=== PATIENT | female | born 1970 | race African-American/Black ===

== ENCOUNTER 2016-10-15 14:41 | Emergency (ER) | payer BC ==
[~2016-10-15] VITALS: Ht 177.8 cm; Wt 111.8 kg
[~2016-10-15 14:41] MED LIST: ANTIVERT 25MG25 MG PO; FLEXERIL 1010 MG/TAB PO; NO HOME MEDICATIONS; NORCO 325 MG-51 TAB PO; PEPCID 20MG TAB20 MG PO; SYNTHROID0.125 MG/T PO
[2016-10-15 14:45] VITALS: TEMP 98.2
[2016-10-15] MEDS ORDERED: COPAXONE 20M20 MG/M1 SQ (14:49)
[2016-10-15 16:01] LABS: BASO % 0.4 % (0.0-2.0); EOS # 0.2 (0.0-0.7); EOS % 2.8 % (0-4.0); GRAN # 4.6 (1.4-6.5); GRAN % 61.4 % (42.2-75.2); HEMATOCRIT 46.5 % (37.0-47.0); HEMOGLOBIN 15.3 g/dl (12.5-16.0); LYMPH # 2.1 (1.2-3.4); MEAN CELL VOLUME 95 fl (80.0-100.0); MEAN CORPUSCULAR HEMOGLOBIN 31 pg (27.0-31.0); MEAN CORPUSCULAR HGB CONC 33 g/dl (33.0-37.0); MEAN PLATELET VOLUME 11.6 fl (7.4-10.4); MONO # 0.6 (0.1-0.6); MONO % 7.3 % (1.7-9.3); PLATELET COUNT 170 K/mm3 (130-400); RED BLOOD COUNT 4.88 M/mm3 (4.10-5.30); REDCELL DISTRIBUTION WIDTH-CV 13.7 % (11.5-14.5); WHITE BLOOD COUNT 7.5 K/mm3 (4.8-10.8)
[2016-10-15 16:11] LABS: CALCIUM 8.8 mg/dL (8.4-10.2); CREATININE, serum 1.24 mg/dL (0.52-1.25); POTASSIUM 3.5 mmol/L (3.4-5.0)
[2016-10-15 17:00] VITALS: BP 120/88; PULSE 90
== END 2016-10-15 17:02 | disposition home or self-care (01) ==
LOC: COL.ER 14:41 → EDSTATUS 14:44 → COL.ER 17:02
PROVIDERS: Emergency Medicine
DX: J10.1 Influenza due to other identified influenza virus with other respiratory manifestations (principal)
CPT/HCPCS: J1200; J1885; J2765; J3010; J7030

== ENCOUNTER → 2016-12-23 | Outpatient (CLI) | payer BC ==
[~2016-12-23] MED LIST changes: +COPAXONE 20M20 MG/M1 SQ
== END ==
LOC: MHCPAIN 11:26
DX: G89.29 Other chronic pain (principal); M54.12 Radiculopathy, cervical region; M47.812 Spondylosis without myelopathy or radiculopathy, cervical region
CPT/HCPCS: G0463

== ENCOUNTER → 2016-12-25 | Outpatient (CLI) | payer BC | LOC: MHCPAIN 11:05 | DX: M50.90 Cervical disc disorder, unspecified, unspecified cervical region (principal) | CPT/HCPCS: J1100; Q9967 ==

== ENCOUNTER 2017-07-17 15:00 | Outpatient (RCR) | payer OTHER ==
[2017-07-10 16:15] VITALS: BP 140/88; PULSE 67; TEMP 97.6
[2017-07-13 16:37] VITALS: BP 152/98; PULSE 79; TEMP 97.9
[2017-07-13 17:04] LABS: BASO % 0.1 % (0.0-2.0); GRAN # 18.9 (1.4-6.5); GRAN % 79.5 % (42.2-75.2); HEMATOCRIT 38.9 % (37.0-47.0); HEMOGLOBIN 12.7 g/dl (12.5-16.0); LYMPH # 3.1 (1.2-3.4); LYMPH % 13.2 % (20.0-51.0); MEAN CELL VOLUME 99 fl (80.0-100.0); MEAN CORPUSCULAR HEMOGLOBIN 32 pg (27.0-31.0); MEAN CORPUSCULAR HGB CONC 33 g/dl (33.0-37.0); MEAN PLATELET VOLUME 11.8 fl (7.4-10.4); MONO # 1.5 (0.1-0.6); MONO % 6.1 % (1.7-9.3); PLATELET COUNT 221 K/mm3 (130-400); RED BLOOD COUNT 3.95 M/mm3 (4.10-5.30)
[2017-07-13 17:06] LABS: WHITE BLOOD COUNT 23.8 K/mm3 (4.8-10.8)
[2017-07-13 17:15] LABS: ADJUSTED CALCIUM 8.8 mg/dL (8.4-10.2); ALBUMIN 3.9 gm/dL (3.5-5.0); BILIRUBIN,TOTAL 0.2 mg/dL (0.0-1.0); CALCIUM 8.7 mg/dL (8.4-10.2); CREATININE, serum 1.02 mg/dL (0.52-1.25); POTASSIUM 3.3 mmol/L (3.4-5.0); TOTAL PROTEIN 6.7 gm/dL (6.4-8.2)
[2017-07-14 16:48] VITALS: BP 155/89; PULSE 62; TEMP 98.1
[~2017-07-17] VITALS: Ht 180.3 cm; Wt 118.8 kg
[2017-07-17 14:30] VITALS: BP 173/81; PULSE 89; TEMP 97.6
[2017-07-17 15:05] LABS: HEMATOCRIT 41.3 % (37.0-47.0); HEMOGLOBIN 13.7 g/dl (12.5-16.0); MEAN CELL VOLUME 97 fl (80.0-100.0); MEAN CORPUSCULAR HEMOGLOBIN 32 pg (27.0-31.0); MEAN CORPUSCULAR HGB CONC 33 g/dl (33.0-37.0); PLATELET COUNT 195 K/mm3 (130-400); RED BLOOD COUNT 4.27 M/mm3 (4.10-5.30); WHITE BLOOD COUNT 16.5 K/mm3 (4.8-10.8)
== END 2017-07-17 15:10 | disposition home or self-care (01) ==
LOC: EUO 15:00
PROVIDERS: Psychiatry & Neurology Neurology
DX: G35 Multiple sclerosis (principal)
CPT/HCPCS: J2930; J7050

== ENCOUNTER → 2017-07-31 | Outpatient (CLI) | payer OTHER ==
[2017-07-31 09:36] LABS: BASO # 0.1 (0.0-0.2); BASO % 0.7 % (0.0-2.0); EOS # 0.3 (0.0-0.7); GRAN # 5.9 (1.4-6.5); GRAN % 61.7 % (42.2-75.2); LYMPH # 2.8 (1.2-3.4); MEAN CELL VOLUME 97 fl (80.0-100.0); MEAN CORPUSCULAR HEMOGLOBIN 32 pg (27.0-31.0); MEAN CORPUSCULAR HGB CONC 33 g/dl (33.0-37.0); MEAN PLATELET VOLUME 11.7 fl (7.4-10.4); MONO # 0.5 (0.1-0.6); MONO % 5.4 % (1.7-9.3); PLATELET COUNT 183 K/mm3 (130-400); RED BLOOD COUNT 4.33 M/mm3 (4.10-5.30); REDCELL DISTRIBUTION WIDTH-CV 14.4 % (11.5-14.5)
== END ==
LOC: COL.LAB 09:11
PROVIDERS: Psychiatry & Neurology Neurology
DX: G35 Multiple sclerosis (principal); D72.829 Elevated white blood cell count, unspecified

== ENCOUNTER → 2017-11-16 | Outpatient (CLI) | payer OTHER | LOC: COL.RAD 11-13 14:00 | DX: R31.9 Hematuria, unspecified (principal) | CPT/HCPCS: Q9967 ==

== ENCOUNTER 2018-05-18 16:30 | Outpatient (RCR) | payer OTHER ==
[2018-05-14 15:00] VITALS: BP 136/72; PULSE 66; TEMP 98
[2018-05-14 15:45] LABS: BASO # 0.1 (0.0-0.2); BASO % 0.7 % (0.0-2.0); EOS # 0.2 (0.0-0.7); GRAN # 6.6 (1.4-6.5); GRAN % 59.7 % (42.2-75.2); HEMATOCRIT 42.2 % (37.0-47.0); HEMOGLOBIN 13.6 g/dl (12.5-16.0); LYMPH # 3.5 (1.2-3.4); LYMPH % 31.4 % (20.0-51.0); MEAN CELL VOLUME 98 fl (80.0-100.0); MEAN CORPUSCULAR HEMOGLOBIN 32 pg (27.0-31.0); MEAN CORPUSCULAR HGB CONC 32 g/dl (33.0-37.0); MEAN PLATELET VOLUME 11.6 fl (7.4-10.4); MONO # 0.7 (0.1-0.6); MONO % 5.9 % (1.7-9.3); PLATELET COUNT 211 K/mm3 (130-400); RED BLOOD COUNT 4.32 M/mm3 (4.10-5.30); REDCELL DISTRIBUTION WIDTH-CV 14.2 % (11.5-14.5)
[2018-05-14 15:53] LABS: ALBUMIN 4.2 gm/dL (3.5-5.0); BILIRUBIN,TOTAL 0.3 mg/dL (0.0-1.0); CALCIUM 9.1 mg/dL (8.4-10.2); CREATININE, serum 1.08 mg/dL (0.52-1.25); POTASSIUM 3.3 mmol/L (3.4-5.0); TOTAL PROTEIN 7.6 gm/dL (6.4-8.2)
[2018-05-15 07:00] VITALS: BP 148/94; PULSE 97; TEMP 98.3
[2018-05-16 07:34] VITALS: BP 99/76; PULSE 88; TEMP 97.3
[2018-05-17 16:48] VITALS: BP 143/84; PULSE 85
[~2018-05-18] VITALS: Ht 180.3 cm; Wt 119.5 kg
[2018-05-18 17:10] VITALS: BP 166/85; PULSE 72; TEMP 97.4
== END 2018-05-18 18:40 | disposition home or self-care (01) ==
LOC: EUO 16:30
PROVIDERS: Psychiatry & Neurology Neurology
DX: G35 Multiple sclerosis (principal)
CPT/HCPCS: J2930; J7050

== ENCOUNTER → 2018-05-21 | Outpatient (CLI) | payer OTHER ==
[2018-05-21 13:28] LABS: COLLECTION METHOD CLEAN CATCH
[2018-05-21 13:31] LABS: HEMATOCRIT 44.9 % (37.0-47.0); MEAN CELL VOLUME 94 fl (80.0-100.0); MEAN CORPUSCULAR HEMOGLOBIN 31 pg (27.0-31.0); MEAN CORPUSCULAR HGB CONC 33 g/dl (33.0-37.0); MEAN PLATELET VOLUME 11.2 fl (7.4-10.4); PLATELET COUNT 205 K/mm3 (130-400); RED BLOOD COUNT 4.79 M/mm3 (4.10-5.30); REDCELL DISTRIBUTION WIDTH-CV 14.3 % (11.5-14.5)
[2018-05-21 13:34] LABS: PH 7 (5-8); SQUAMOUS EPITHELIAL 0-2 /hpf; URINE APPEARANCE Clear; URINE BACTERIA None Seen /hpf; URINE BILIRUBIN Negative (NEGATIVE); URINE BLOOD 1+ (NEGATIVE); URINE COLOR Straw; URINE GLUCOSE Negative (NEGATIVE); URINE KETONE Negative (NEGATIVE); URINE LEUKOCYTE ESTERASE Negative (NEGATIVE); URINE NITRATE Negative (NEGATIVE); URINE PROTEIN(semi-quant) Negative (NEGATIVE); URINE RBC 0-2 /hpf; URINE UROBILINOGEN Negative (NEGATIVE)
[2018-05-21 13:47] LABS: ALBUMIN 3.4 gm/dL (3.5-5.0); BILIRUBIN,TOTAL 0.3 mg/dL (0.0-1.0); CALCIUM 8.2 mg/dL (8.4-10.2); CREATININE, serum 0.91 mg/dL (0.52-1.25); POTASSIUM 3.3 mmol/L (3.4-5.0); TOTAL PROTEIN 6.2 gm/dL (6.4-8.2)
[2018-05-21 13:52] LABS: BAND 5 % (0-10); EOSINOPHIL 3 % (0-4); LYMPHOCYTE 35 % (20.0-51.0); NEUTROPHILS 52 % (42.0-75.2)
[2018-05-21 13:53] LABS: PLATELET ESTIMATE NORMAL (NORMAL)
[2018-05-21 14:06] LABS: ERYTHROCYTE SEDIMENTATION RATE 1 mm/hr (0-20)
[2018-05-21 14:14] LABS: THYROID STIMULATING HORMONE 32.7 uIU/mL (0.465-4.680)
== END ==
LOC: COL.LAB 12:01
PROVIDERS: Family Medicine
DX: M79.10 Myalgia, unspecified site (principal); R73.03 Prediabetes

== ENCOUNTER → 2018-10-08 | Outpatient (CLI) | payer OTHER | LOC: COL.RAD 10:14 | DX: G37.9 Demyelinating disease of central nervous system, unspecified (principal); G35 Multiple sclerosis | CPT/HCPCS: A9585 ==

== ENCOUNTER 2019-03-26 07:00 | Outpatient (RCR) | payer OTHER ==
[2019-03-22 10:30] VITALS: BP 127/82; PULSE 16; TEMP 97.5
[2019-03-23 11:32] VITALS: BP 145/90; PULSE 93; TEMP 98
[2019-03-24 11:00] VITALS: BP 152/101; PULSE 79; TEMP 97.8
--- NOTE | 2019-03-24 12:15 | NUR ---
INT LEFT IN PLACE PER PT REQUEST.WRAPPED IN [employer].
[2019-03-25 10:26] VITALS: BP 152/95; PULSE 73; TEMP 97.6
[~2019-03-26] VITALS: Ht 180.3 cm; Wt 118.3 kg
[2019-03-26 07:07] VITALS: BP 124/81; PULSE 92; TEMP 97.6
--- NOTE | 2019-03-26 09:05 | NUR ---
Pt re Solumedrol well. Pt discharged per ambulation.
== END 2019-03-26 09:06 | disposition home or self-care (01) ==
LOC: EUO 07:00
DX: G35 Multiple sclerosis (principal)
CPT/HCPCS: J2930; J7050

== ENCOUNTER → 2019-04-28 | Outpatient (CLI) | payer OTHER ==
[2019-04-28 07:54] LABS: BASO # 0.1 (0.0-0.2); BASO % 0.8 % (0.0-2.0); EOS # 0.2 (0.0-0.7); EOS % 1.6 % (0-4.0); GRAN # 6.4 (1.4-6.5); GRAN % 63.8 % (42.2-75.2); HEMATOCRIT 43.2 % (37.0-47.0); HEMOGLOBIN 13.8 g/dl (12.5-16.0); LYMPH # 2.7 (1.2-3.4); LYMPH % 26.8 % (20.0-51.0); MEAN CELL VOLUME 98 fl (80.0-100.0); MEAN CORPUSCULAR HEMOGLOBIN 31 pg (27.0-31.0); MEAN CORPUSCULAR HGB CONC 32 g/dl (33.0-37.0); MEAN PLATELET VOLUME 11.2 fl (7.4-10.4); MONO # 0.7 (0.1-0.6); MONO % 6.6 % (1.7-9.3); PLATELET COUNT 249 K/mm3 (130-400); RED BLOOD COUNT 4.43 M/mm3 (4.10-5.30)
[2019-04-28 08:14] LABS: ALBUMIN 4.1 gm/dL (3.5-5.0); BILIRUBIN,TOTAL 0.3 mg/dL (0.0-1.0); CALCIUM 8.8 mg/dL (8.4-10.2); CREATININE, serum 1.15 (0.52-1.25); POTASSIUM 4.1 mmol/L (3.4-5.0); TOTAL PROTEIN 7.3 gm/dL (6.4-8.2)
[2019-04-30 08:24] LABS: TB GOLD INTERPRETATION Negative (Negative)
== END ==
LOC: COL.LAB 07:28
PROVIDERS: Psychiatry & Neurology Neurology
DX: G35 Multiple sclerosis (principal); Z76.89 Persons encountering health services in other specified circumstances; Z79.899 Other long term (current) drug therapy

== ENCOUNTER → 2019-08-17 | Outpatient (CLI) | payer OTHER ==
--- NOTE | 2019-08-16 08:38 | NUR ---
Patient states that she had Albuterol inhaler 1 hour ago. Rescheduling patient for PFT tomorrow at 0700am before her CT annamarie. Brandan Main, [employer]
== END ==
LOC: COL.PUL 08-16 08:00 → COL.RAD 06:45 → COL.PUL 07:00
DX: J92.9 Pleural plaque without asbestos (principal)

== ENCOUNTER → 2019-08-17 | Outpatient (CLI) | payer OTHER | LOC: COL.PUL 06:45 → COL.RAD 08:00 → COL.PUL 08:00 | DX: R05 Cough (principal) | CPT/HCPCS: Q9967 ==

== ENCOUNTER 2019-10-03 07:00 | Outpatient (RCR) | payer OTHER ==
[2019-09-29 16:43] LABS: BASO # 0.1 (0.0-0.2); BASO % 0.7 % (0.0-2.0); EOS # 0.2 (0.0-0.7); EOS % 1.8 % (0-4.0); GRAN # 7.4 (1.4-6.5); GRAN % 61.5 % (42.2-75.2); HEMATOCRIT 41.3 % (37.0-47.0); HEMOGLOBIN 13.5 g/dl (12.5-16.0); LYMPH # 3.3 (1.2-3.4); LYMPH % 27.6 % (20.0-51.0); MEAN CELL VOLUME 99 fl (80.0-100.0); MEAN CORPUSCULAR HEMOGLOBIN 32 pg (27.0-31.0); MEAN CORPUSCULAR HGB CONC 33 g/dl (33.0-37.0); MEAN PLATELET VOLUME 11.7 fl (7.4-10.4); MONO % 8.2 % (1.7-9.3); PLATELET COUNT 198 K/mm3 (130-400); RED BLOOD COUNT 4.19 M/mm3 (4.10-5.30); REDCELL DISTRIBUTION WIDTH-CV 14.1 % (11.5-14.5)
[2019-09-29 16:52] LABS: BILIRUBIN,TOTAL 0.2 mg/dL (0.0-1.0); CALCIUM 8.8 mg/dL (8.4-10.2); CREATININE, serum 1.12 (0.52-1.25); TOTAL PROTEIN 6.9 gm/dL (6.4-8.2)
--- NOTE | 2019-09-29 18:30 | NUR ---
INT wrapped for tomorrow's infusion per pt request.
[2019-09-30 12:24] VITALS: BP 150/95; PULSE 109; TEMP 98.7
[2019-10-01 08:04] VITALS: BP 148/89; PULSE 86; TEMP 98
[2019-10-02 07:36] VITALS: BP 148/91; PULSE 73; TEMP 98.5
[2019-10-02 09:30] VITALS: PULSE 66
--- NOTE | 2019-10-02 09:30 | NUR ---
Per pt request, pt's saline lock to rt hand left in place for tomorrow's infusion. no pain, redness at site noted. site wrapped with coban .
[~2019-10-03] VITALS: Ht 180.3 cm; Wt 87.0 kg
[~2019-10-03 07:00] MED LIST changes: +AUBAGIO14 MG PO
[2019-10-03 09:11] VITALS: BP 158/92; PULSE 66; TEMP 97.6
== END 2019-10-03 09:24 | disposition home or self-care (01) ==
LOC: EUO 07:00
PROVIDERS: Psychiatry & Neurology Neurology
DX: G35 Multiple sclerosis (principal)
CPT/HCPCS: J2405; J2930; J7050

== ENCOUNTER → 2019-10-18 | Outpatient (CLI) | payer OTHER | LOC: COL.RAD 13:44 | DX: M48.02 Spinal stenosis, cervical region (principal); M50.21 Other cervical disc displacement, high cervical region; M47.812 Spondylosis without myelopathy or radiculopathy, cervical region; G35 Multiple sclerosis; G37.1 Central demyelination of corpus callosum | CPT/HCPCS: A9585 ==

== ENCOUNTER 2021-01-05 06:46 | Observation (INO) | payer OTHER ==
[~2021-01-05] VITALS: Ht 177.8 cm; Wt 115.0 kg
[2021-01-05 07:20] LABS: BASO # 0.1 (0.0-0.2); BASO % 0.4 % (0.0-2.0); EOS # 0.1 (0.0-0.7); EOS % 0.3 % (0-4.0); GRAN # 11.5 (1.4-6.5); GRAN % 77.4 % (42.2-75.2); HEMATOCRIT 44.4 % (37.0-47.0); HEMOGLOBIN 14.2 g/dl (12.5-16.0); LYMPH # 2.4 (1.2-3.4); LYMPH % 15.8 % (20.0-51.0); MEAN CELL VOLUME 96 fl (80.0-100.0); MEAN CORPUSCULAR HEMOGLOBIN 31 pg (27.0-31.0); MEAN CORPUSCULAR HGB CONC 32 g/dl (33.0-37.0); MEAN PLATELET VOLUME 11.7 fl (7.4-10.4); MONO # 0.9 (0.1-0.6); MONO % 5.8 % (1.7-9.3); PLATELET COUNT 226 K/mm3 (130-400); RED BLOOD COUNT 4.62 M/mm3 (4.10-5.30); REDCELL DISTRIBUTION WIDTH-CV 13.7 % (11.5-14.5)
[2021-01-05 07:25] LABS: COLLECTION METHOD CLEAN CATCH
[2021-01-05 07:42] LABS: ALBUMIN 4.5 gm/dL (3.5-5.0); BILIRUBIN,TOTAL 0.2 mg/dL (0.0-1.0); CALCIUM 9.7 mg/dL (8.4-10.2); CREATININE, serum 1.34 (0.52-1.25); POTASSIUM 3.5 mmol/L (3.4-5.0); TOTAL PROTEIN 7.9 gm/dL (6.4-8.2)
[2021-01-05 07:43] LABS: MUCOUS Present /lpf; PH 5 (5-8); URINE APPEARANCE Cloudy; URINE BACTERIA Rare /hpf; URINE BILIRUBIN Negative (NEGATIVE); URINE BLOOD 3+ (NEGATIVE); URINE COLOR Yellow; URINE GLUCOSE Negative (NEGATIVE); URINE KETONE Trace (NEGATIVE); URINE LEUKOCYTE ESTERASE Negative (NEGATIVE); URINE NITRATE Negative (NEGATIVE); URINE PROTEIN(semi-quant) 1+ (NEGATIVE); URINE RBC 20-50 /hpf; URINE UROBILINOGEN Negative (NEGATIVE)
[2021-01-05 14:00] VITALS: BP 148/86; PULSE 92; TEMP 98
[2021-01-05 15:25] VITALS: BP 141/79; PULSE 99; TEMP 98
[2021-01-05 18:10] VITALS: BP 120/72; PULSE 85; TEMP 97.8
[2021-01-05 20:23] VITALS: BP 159/77; PULSE 93; TEMP 98.4
--- NOTE | 2021-01-05 21:30 | NUR ---
Pt. laying in bed at this time. Pt. is A&OX3, assessment complete IV to lt. ac patent, IV fluids infusing per orders. Pt. reports pain to rt. flank at a 6 on pain scale, will give meds per orders. Pt. denies further needs, call light within reach.
--- NOTE | 2021-01-05 22:00 | NUR ---
Pt. up to the bathroom at this time. Pt. urine strained. Noted two small stones. Placed stones in a specimen cup.
[2021-01-06 03:30] VITALS: BP 125/75; PULSE 85; TEMP 97.6
--- NOTE | 2021-01-06 03:30 | NUR ---
Pt. up to the restroom at this time. Pt. urinated 200 ml clear yellow urine. Strained urine, second stone noted at this time. Stone placed in same specimen cup as previous stone.
[2021-01-06 08:00] VITALS: BP 132/78; PULSE 86; TEMP 97.5
--- NOTE | 2021-01-06 08:00 | NUR ---
AT BEDSIDE. NO SURGERY TODAY.
--- NOTE | 2021-01-06 09:30 | NUR ---
PATIENT DISCHARGING HOME VIA AMBULATORY WITH . GAVE DISCHARGE INSTRUCTIONS AND DISCUSSED F/U WITH UROLOGY NEEDED. ANSWERED QUESTIONS/CONCERNS. DC'D LEFT AC IV, COVERED SITE WITH GAUZE & TAPE. PATIENT SHOWERED, DRESSED AND PACKED FOR DISCHARGE. PATIENT DISCHARGED TO HOME.
== END 2021-01-06 09:30 | disposition home or self-care (01) ==
LOC: COL.ER 06:46 → SURG 11:38
PROVIDERS: Personal Emergency Response Attendant; ADMIT Urology
DX: N20.2 Calculus of kidney with calculus of ureter (principal); Z90.89 Acquired absence of other organs; Z79.890 Hormone replacement therapy; Z79.899 Other long term (current) drug therapy
CPT/HCPCS: G0378; J1170; J1885; J2270; J2405; J7030; Q9967

== ENCOUNTER 2021-03-12 09:00 | Outpatient (RCR) | payer OTHER ==
[2021-03-08 09:33] LABS: HEMATOCRIT 42.6 % (37.0-47.0); HEMOGLOBIN 13.8 g/dl (12.5-16.0); MEAN CELL VOLUME 97 fl (80.0-100.0); MEAN CORPUSCULAR HEMOGLOBIN 31 pg (27.0-31.0); MEAN CORPUSCULAR HGB CONC 32 g/dl (33.0-37.0); MEAN PLATELET VOLUME 11.6 fl (7.4-10.4); PLATELET COUNT 220 K/mm3 (130-400); REDCELL DISTRIBUTION WIDTH-CV 14.4 % (11.5-14.5)
[2021-03-08 09:39] VITALS: BP 135/85; PULSE 93; TEMP 98.5
[2021-03-08 09:41] LABS: ALBUMIN 4.1 gm/dL (3.5-5.0); BILIRUBIN,TOTAL 0.4 mg/dL (0.0-1.0); CALCIUM 8.9 mg/dL (8.4-10.2); POTASSIUM 4.2 mmol/L (3.4-5.0); TOTAL PROTEIN 7.2 gm/dL (6.4-8.2)
[2021-03-08 09:54] LABS: BAND 1 % (0-10); BASOPHIL 2 % (0-2); EOSINOPHIL 3 % (0-4); LYMPHOCYTE 30 % (20.0-51.0); METAMYELOCYTE 1 % (0-0); NEUTROPHILS 60 % (42.0-75.2); PLATELET ESTIMATE NORMAL (NORMAL)
[2021-03-08 10:00] LABS: HYPOCHROMIA 1+
[2021-03-09 09:52] VITALS: BP 127/80; PULSE 102; TEMP 98.4
[2021-03-10 08:33] VITALS: BP 139/82; PULSE 90; TEMP 98
[2021-03-11 09:15] VITALS: BP 143/82; PULSE 77; TEMP 98.3
[~2021-03-12] VITALS: Ht 177.8 cm; Wt 128.0 kg
[2021-03-12 09:26] VITALS: BP 147/94; PULSE 66; TEMP 98
== END 2021-03-12 11:30 | disposition still patient (30) ==
LOC: EUO 09:00
PROVIDERS: Family Medicine
DX: G35 Multiple sclerosis (principal)
CPT/HCPCS: J2930; J7050

== ENCOUNTER 2022-02-04 08:56 | Emergency (ER) | payer OTHER ==
[~2022-02-04] VITALS: Ht 177.8 cm; Wt 109.1 kg
[2022-02-04 09:02] VITALS: TEMP 97.8
[2022-02-04 09:48] LABS: COLLECTION METHOD CLEAN CATCH
[2022-02-04 09:55] LABS: MUCOUS Present (NOT PRESENT); PH 5 (5-8); URINE APPEARANCE Clear (CLEAR/HAZY); URINE BACTERIA Rare /hpf (NONE SEEN); URINE BILIRUBIN Negative (NEGATIVE); URINE BLOOD 2+ (NEGATIVE); URINE COLOR Yellow (YELLOW); URINE GLUCOSE Negative (NEGATIVE); URINE KETONE Negative (NEGATIVE); URINE LEUKOCYTE ESTERASE Negative (NEGATIVE); URINE NITRATE Negative (NEGATIVE); URINE PROTEIN(semi-quant) Negative (NEGATIVE); URINE UROBILINOGEN Negative (NEGATIVE)
[2022-02-04 10:08] LABS: BASO # 0.1 K/mm3 (0.0-0.2); BASO % 0.8 % (0.0-2.0); EOS # 0.3 K/mm3 (0.0-0.7); EOS % 3.2 % (0.0-4.0); GRAN # 5.3 K/mm3 (1.4-6.5); GRAN % 55.7 % (42.2-75.2); HEMATOCRIT 40.7 % (37.0-47.0); HEMOGLOBIN 13.6 g/dl (12.5-16.0); LYMPH # 3.2 K/mm3 (1.2-3.4); LYMPH % 33.4 % (20.0-51.0); MEAN CELL VOLUME 90 fl (80.0-100.0); MEAN CORPUSCULAR HEMOGLOBIN 30 pg (27-31); MEAN CORPUSCULAR HGB CONC 33 g/dl (33.0-37.0); MONO # 0.6 K/mm3 (0.1-0.6); MONO % 6.7 % (1.7-9.3); PLATELET COUNT 229 K/mm3 (130-400); RED BLOOD COUNT 4.52 M/mm3 (4.10-5.30); REDCELL DISTRIBUTION WIDTH-CV 14.6 % (11.5-14.5)
[2022-02-04 10:28] LABS: ALBUMIN 3.7 gm/dL (3.5-5.0); BILIRUBIN,TOTAL 0.2 mg/dL (0.2-1.2); C-REACTIVE PROTEIN 0.28 mg/dL (0.00-0.50); CALCIUM 9.2 mg/dL (8.4-10.2); CREATININE, serum 0.86 mg/dL (0.57-1.11)
[2022-02-04 10:38] LABS: ERYTHROCYTE SEDIMENTATION RATE 2 mm/hr (0-30)
[2022-02-04 13:34] VITALS: BP 157/100; PULSE 64
[2022-02-05] MEDS ORDERED: SYNTHROID0.2 MG/TAB PO (11:07)
[2022-02-06] MEDS ORDERED: NEURONTIN100 MG/CAP PO (10:42)
[2022-02-07] MEDS ORDERED: NORCO 325 MG-51 TAB PO (10:09)
== END 2022-02-04 13:42 | disposition home or self-care (01) ==
LOC: COL.ER 08:56
PROVIDERS: Family Medicine
DX: G35 Multiple sclerosis (principal)
CPT/HCPCS: J2270; J2405; J2930; J3010; J7060

== ENCOUNTER 2022-02-08 10:00 | Outpatient (RCR) | payer OTHER ==
[2022-02-05 11:05] VITALS: BP 129/85; PULSE 80; TEMP 97.7
[2022-02-06 10:35] VITALS: BP 150/88; PULSE 79; TEMP 97.9
[2022-02-07 10:20] VITALS: BP 149/85; PULSE 55; TEMP 98.7
[~2022-02-08] VITALS: Ht 177.8 cm; Wt 109.9 kg
[2022-02-08 08:43] VITALS: BP 139/77; PULSE 81; TEMP 98
[~2022-02-08 10:00] MED LIST changes: +NEURONTIN100 MG/CAP PO; +SYNTHROID0.2 MG/TAB PO
== END 2022-02-08 10:05 | disposition still patient (30) ==
LOC: EUO 10:00
DX: G35 Multiple sclerosis (principal)
CPT/HCPCS: J2930; J7050

== ENCOUNTER → 2022-03-12 | Outpatient (CLI) | payer OTHER | LOC: COL.RAD 07:12 | DX: G93.9 Disorder of brain, unspecified (principal); G35 Multiple sclerosis; Z79.899 Other long term (current) drug therapy | CPT/HCPCS: A9575 ==

== ENCOUNTER → 2023-11-30 | Outpatient (CLI) | payer OTHER ==
[~2023-11-30] MED LIST changes: +CALCITRIOL PO; +CALCIUM 600MG+D1 TAB PO; +FLOMAX 0.40.4 MG/CAP PO; +MASON NATURAL2000 IU PO; +MULTIVITAMIN FO1 CAP PO; +NORCO 325 MG-101 TAB PO; +OZEMPIC1 MG/0.71 SQ; +PERCOCET 325 MG1 TA2 PO; +PREDNISONE10 MG PO; +PROTONIX 40MG T40 MG PO; +SOLU-MEDRO1000 MG/1 IV; +SYNTHROID0.075 MG/T PO; +TORADOL 10MG TA10 MG PO; +ZOFRAN ODT4 MG PO
== END ==
LOC: MC.RAD 09:44
DX: N63.41 Unspecified lump in right breast, subareolar (principal)